=== PATIENT | male | born 1990 | race African-American/Black ===

== ENCOUNTER 2016-09-10 14:53 | Emergency (ER) | payer SELFPAY ==
[~2016-09-10] VITALS: Ht 175.3 cm; Wt 72.6 kg
[2016-09-10 15:00] VITALS: BP 122/79
--- NOTE | 2016-09-10 15:00 | Emergency Room Report ---
History of Present Illness General Chief Complaint: Medical Clearance Source: Patient Present Illness Allergies: Coded Allergies: No Known Allergies (Unverified , 09/10/16) Patient History Reviewed Nursing Documentation: PMH: Agreed, PSxH: Agreed Nursing Documentation-PMH Hx Asthma: Yes Physical Exam Vital Signs Date Time Temp Pulse Resp B/P Pulse Ox O2 Delivery O2 Flow Rate FiO2 09/10/16 14:50 101 20 122/79 100 Room Air Medical Decision Making PA Attestation Dr. martinez is my supervising physician. Patient management was discussed with my supervising physician Last Vital Signs Date Time Temp Pulse Resp B/P Pulse Ox O2 Delivery O2 Flow Rate FiO2 09/10/16 14:50 101 20 122/79 100 Room Air Disposition: VERNON OWEN Sep 10, 2016 15:00
--- NOTE | 2016-09-10 15:03 | Emergency Room Report ---
History of Present Illness General Chief Complaint: Medical Clearance Source: Patient Present Illness Allergies: Coded Allergies: No Known Allergies (Unverified , 09/10/16) Nursing Documentation-[facility] Hx Asthma: Yes Physical Exam Vital Signs Date Time Temp Pulse Resp B/P Pulse Ox O2 Delivery O2 Flow Rate FiO2 09/10/16 14:50 101 20 122/79 100 Room Air Medical Decision Making ER Course Upon arrival the patient was placed into a bed going to talk to the patient he stands up and states that he does not want to be seen Paramedics report that they are not sure why they are made to bring the patient to the hospital The patient left without being seen Last Vital Signs Date Time Temp Pulse Resp B/P Pulse Ox O2 Delivery O2 Flow Rate FiO2 09/10/16 14:50 101 20 122/79 100 Room Air Status: other Disposition: LEFT W/OUT BEING SEEN Condition: Unknown DELMI EDMONDS D.O. Sep 10, 2016 15:03
== END 2016-09-10 15:30 | disposition left against medical advice (07) ==
LOC: EDBD 14:53 → EMR 15:05
DX: R07.9 Chest pain, unspecified (principal); Z53.21 Procedure and treatment not carried out due to patient leaving prior to being seen by health care provider
CPT/HCPCS: 99283